=== PATIENT | female | born 1990 | race American Indian/Alaskan Native ===

== ENCOUNTER 2020-03-16 10:06 | Day surgery (SDC) | payer OTHER, MEDICAID ==
[~2020-03-16 10:06] MED LIST: ACETAMINOPHEN 500 MG TAB PO SCH; CELECOXIB 200 MG CAP PO NR; GABAPENTIN 300 MG CAP PO NR; LACTATED RINGERS 1,000 ML IV SCH
--- NOTE | 2020-03-16 10:20 | Short Stay Summary ---
Short Stay Documentation Date of service: 03/16/20 Narrative H&P: Pt is a 29 year old who presents for elective sterilization. She is 12 weeks post vaginal delivery. - History H&P: obtained from office Past Medical History: No medical history Past Surgical History: No surgical history Social history: single - Allergies and Medications Current Medications: Allergies No Known Allergies Allergy (Verified 03/16/20 07:22) Home Medications Medication Instructions Recorded Confirmed Last Taken Type Ibuprofen [Motrin] 800 mg PO Q8HR PRN #40 tablet 12/10/19 03/16/20 Unknown Rx Active Medications Acetaminophen (Tylenol) 1,000 mg PO PREOP CHERRI Stop: 03/16/20 23:00 Celecoxib (Celebrex) 200 mg PO PREOP NR Stop: 03/16/20 23:00 Gabapentin (Gabapentin) 300 mg PO PREOP NR Stop: 03/16/20 23:00 Lactated Ringer's (Lactated Ringers) 1,000 mls @ 100 mls/hr IV DIRECT CHERRI Midazolam HCl (Versed) 2 mg IV PREOP NR Stop: 03/16/20 23:59 - Physical exam General appearance: no acute distress Integumentary: no rash Lungs: Clear to auscultation, Normal air movement Breasts: deferred Heart: Regular rate, Normal S1, Normal S2 Gastrointestinal: normal, normoactive bowel sounds Female Genitourinary: deferred Rectal Exam: deferred Extremities: no ischemia - Brief post op/procedure progress note Date of procedure: 03/16/20 Pre-op diagnosis: Undesired fertility Post-op diagnosis: same Procedure: Laparoscopic tubal fulguration Anesthesia: GETA Findings: normal uterus tubes and ovaries Surgeon: CAMILO IRVIN Estimated blood loss: minimal Pathology: none Condition: stable - Hospital course Hospital course: unremarkable - Disposition Condition at discharge: Good Disposition: DC-01 TO HOME OR SELFCARE Short Stay Discharge Plan Activity: advance as tolerated Weight Bearing Status: Weight Bear as Tolerated Diet: regular Follow up with: CAMILO IRVIN MD [Primary Care Provider] - 14 Days Prescriptions: Ibuprofen [Motrin 800 MG tab] 800 mg PO Q8HR PRN #40 tablet PRN Reason: Pain, Mild (1-3) HYDROcodone/APAP 7.5-325 [[place] 7.5/325] 1 each PO Q6HR PRN #25 tablet PRN Reason: Pain
[2020-03-16] MEDS ORDERED: ONDANSETRON 4 MG/2 ML INJ IV PRN (10:50)
--- NOTE | 2020-03-16 10:50 | Anesthesia Day of Surgery ---
Anesthesia Day of Surgery - Day of Surgery Patient Examined: Yes Patient H&P Reviewed: Yes Patient is NPO: Yes
--- NOTE | 2020-03-16 10:50 | Anesthesia Consultation ---
Anesthesia Consult and Med Hx Date of service: 03/16/20 - Airway Anesthetic Teeth Evaluation: Good ROM Head & Neck: Adequate Mental/Hyoid Distance: Adequate Mallampati Class: Class II Intubation Access Assessment: Probably Good - Pulmonary Exam CTA: Yes - Cardiac Exam Cardiac Exam: RRR - Pre-Operative Health Status ASA Pre-Surgery Classification: ASA2 Proposed Anesthetic Plan: General - Pulmonary Hx Smoking: No Hx Respiratory Symptoms: No - Cardiovascular System Hx Hypertension: No (gHTN now resolved) - Central Nervous System CVA: No - Gastrointestinal Hx Gastroesophageal Reflux Disease: No - Endocrine Hx Renal Disease: No Hx Liver Disease: No Hx Insulin Dependent Diabetes: No Hx Non-Insulin Dependent Diabetes: No Hx Thyroid Disease: No - Other Systems Hx Obesity: Yes (BMI 39) - Additional Comments Anesthesia Medical History Comments: No hx anesthetic complications.
[2020-03-16] MEDS: MIDAZOLAM 2 MG/2 ML INJ IV NR ×2 (11:50→12:35)
[2020-03-16] MEDS ORDERED: BUPIVACAINE-EPINEPHRINE/PF 0.25%-1:200,000 (10 ML) VIAL INFILTRATI ONE ×3 (11:56→13:42)
[2020-03-16] MEDS ORDERED: HYDROmorphone 1 MG/1 ML INJ ONE (12:25)
[2020-03-16] MEDS ORDERED: LIDOCAINE MPF (2%) 20 MG/1 ML VIAL 5 ML ONE (12:25)
[2020-03-16] MEDS ORDERED: propofoL 200 MG/20 ML VIAL IV ONE (12:25)
[2020-03-16] MEDS ORDERED: ROCURONIUM 50 MG/5 ML INJ IV ONE (12:26)
[2020-03-16] MEDS ORDERED: ONDANSETRON 4 MG/2 ML INJ ONE (13:45)
[2020-03-16] MEDS ORDERED: NEOSTIGMINE 10MG/10 ML INJ MDV ONE (13:45)
[2020-03-16] MEDS ORDERED: KETOROLAC 30 MG/1 ML INJ ONE (13:45)
[2020-03-16] MEDS ORDERED: GLYCOPYRROLATE 0.4 MG/2 ML INJ ONE (13:45)
[2020-03-16] MEDS: HYDROmorphone 1 MG/1 ML INJ IV PRN ×2 (14:10→14:20)
--- NOTE | 2020-03-16 14:36 | Operative Report ---
Operative Report Operative Report: Preoperative diagnosis: Undesired fertility Postoperative diagnosis: Same Procedure: Bilateral laparoscopic fulguration Surgeon: Milagros Kline Anesthesia: General EBL: Minimal IV fluids: 1000 mL Urine output: 150 mL Findings: Normal uterus tubes and ovaries Specimens: None Complications: None The patient was properly identified as herself. She was then taken to the OR with IV running and in place. She was given general anesthesia without difficulty. She was placed in a dorsal lithotomy position. She was then prepped and draped in normal sterile fashion. Attention was turned to the patient's vagina. Her bladder was drained of clear urine with a red rubber catheter. The speculum was then placed the patient's vagina. The cervix was visualized and grasped with tenaculum. The acorn cannula was then inserted. The surgeon's gloves were changed and attention turned to the patient's abdomen. A small incision was made in the patient's umbilicus incision a 5 mm trocar was placed. The laparoscope confirmed intra-abdominal placement. The abdomen was insufflated with CO2 gas to approximately 25 mmHg. Both fallopian tubes were identified. With direct visualization a second trocar was placed through an incision in the left lower quadrant. Both tubes were found and followed out to the fimbriated ends. Each tube was cauterized at the portion nearest the cornua, in the midportion until there was a blanched area of approximately 3 cm in length. There was excellent hemostasis at the end of this portion of the procedure. Each tube was handed off for pathology. At this point the abdomen was deflated. All instruments were then removed from the abdomen. The incisions were then closed with 4-0 Monocryl. The incisions were also injected with quarter percent Marcaine. The patient tolerated the procedure well she was then awakened and taken recovery in stable condition. Sponge needle and instrument counts were correct 2.
[2020-03-16 19:07] VITALS: BP 136/64
== END 2020-03-16 10:07 | disposition home or self-care (01) ==
LOC: OR 10:06
PROVIDERS: ATTEND Obstetrics & Gynecology
DX: Z30.2 Encounter for sterilization (principal); I10 Essential (primary) hypertension; E66.9 Obesity, unspecified; Z98.891 History of uterine scar from previous surgery; Z72.89 Other problems related to lifestyle; Z79.899 Other long term (current) drug therapy; Z98.890 Other specified postprocedural states; Z68.39 Body mass index [BMI] 39.0-39.9, adult
CPT/HCPCS: 58670; 81025; J0690; J1170; J1885; J2250; J2405; J2704; J2710; J7120